=== PATIENT | female | born 1985 | race Caucasian/White ===

== ENCOUNTER 2022-11-05 15:27 | Emergency (ER) | payer SELFPAY ==
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
[2022-11-05 15:58] LABS: Basophils # 0.1 10^3/uL (0.0-0.1); Basophils % 0.5 %; Eosinophils # 0.1 10^3/uL (0.0-0.8); Eosinophils % 1.1 %; Hematocrit 48.6 % (37.0-47.0); Hemoglobin 15.7 g/dL (11.5-15.3); Lymphocytes # 2.1 10^3/uL (0.8-4.8); Lymphocytes % 21.1 %; Mean Corpuscular HGB Conc 32.3 g/dL (30.0-36.0); Mean Corpuscular Hemoglobin 32.6 pg (28.0-34.0); Mean Platelet Volume 10.1 fL (7.4-10.4); Monocytes # 0.6 10^3/uL (0.2-0.9); Monocytes % 6.3 %; Neutrophils # 7.15 10^3/uL (1.8-7.7); Neutrophils % 70.7 %; Nucleated Red Blood Cells % 0 %; Platelet Count 255 10^3/cmm (130-400); Red Blood Count 4.81 10^6/uL (4.1-5.3); Red Cell Distribution Width 13.1 % (12.1-15.1); White Blood Count 10.1 10^3/uL (4.0-10.0)
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
[2022-11-05 16:18] LABS: Alanine Aminotransferase 26 U/L (0-33); Alcohol Level 282 mg/dL (0-10); Alkaline Phosphatase 109 U/L (35-105); Anion Gap 19.3 (5-19); Aspartate Amino Transferase 36 U/L (0-32); Blood Urea Nitrogen 10 mg/dL (6-20); Carbon Dioxide 23 mmol/L (22-29); Chloride 107 mmol/L (98-107); Globulin 3.8 g/dL (1.3-4.6); Glomerular Filtration Rate 139.6 mL/min (90-130); Glucose 92 mg/dL (65-115); Osmolality Calculated 299 mOsm/kg (285-295); Potassium 4.3 mmol/L (3.5-5.1); Sodium 145 mmol/L (136-145); Total Bilirubin 0.3 mg/dL (0.15-1.2); Total Protein 8.8 g/dL (6.6-8.7)
[2022-11-05 16:19] LABS: Acetaminophen < 5.0 ug/mL (10-30); Salicylate < 0.3 mg/dL (3-10)
--- NOTE | 2022-11-05 16:21 | PC.NURSE ---
Dr. Stone to hold off on dressing pt into paper scrubs
--- NOTE | 2022-11-05 16:30 | PC.NURSE ---
Pt refuses to give urine and to answer any questions i ask
[2022-11-05 18:43] VITALS: BP 132/74; PULSE 81; RESP 16; O2SAT 95
[2022-11-05 19:35] VITALS: PULSE 88; RESP 16; O2SAT 96
== END 2022-11-05 19:36 | disposition home or self-care (01) ==
PROVIDERS: Emergency Provider Emergency Medicine; PCP Nurse Practitioner
DX: M54.2 Cervicalgia (principal); F10.129 Alcohol abuse with intoxication, unspecified; Y90.8 Blood alcohol level of 240 mg/100 ml or more
CPT/HCPCS: 72040; 80053; 80307; 85025; 99284

== ENCOUNTER 2022-12-06 12:11 | Emergency (ER) | payer SELFPAY ==
[2022-12-06 12:32] VITALS: BP 119/84; PULSE 95; RESP 16; TEMP 37.1; O2SAT 97; BMI 24.5
--- NOTE | 2022-12-06 12:39 | ED_ITS ---
Documented by User: Helga Ghosh PA-C 12/06/22 13:07 HPI - Dental/Oral General: Chief complaint: Dental/Oral Stated complaint: Mouth is in pain. Time Seen by Provider: 12/06/22 12:21 Source: patient Mode of arrival: ambulatory Limitations: no limitations History of Present Illness: 37-year-old female presents to the ER today for dental pain. Patient reports she has a new abscess that has formed on the front upper tooth. Patient reports she has an appointment with a dentist on Wednesday. She has been on penicillin for about a week now. She reports she is alternating Tylenol and Motrin every 4 hours but it is not touching the pain. Patient reports she is also using topical lidocaine and closed with no improvement. Patient reports that she needs Vicodin or something stronger at this time. She denies any fevers. Denies any swelling of the face. Review of Systems General: Reports: 10 or more systems reviewed and unremarkable except in HPI and below PFSH ED PFSH: Medical History No pertinent past medical history Social History Alcohol intake: current Physical Exam Const: COMMON NORMALS: average body habitus, patient oriented x3, no limitations, healthy appearing, alert and well nourished HENMT: COMMON NORMALS: normocephalic, atraumatic, external ears normal and Normal nasal mucous membranes and turbinates present; dentition not normal HEAD & SCALP: normocephalic and atraumatic NOSE: Normal nasal mucous membranes and turbinates present EXTERNAL EAR: Yes external ears normal TEETH & GINGIVA: Yes caries and Yes poor dentition (Patient has very poor dentition with dental caries and rotting of the upper) OTHER: gingival swelling noted around the front upper teeth Resp: COMMON NORMALS: normal respiratory effort EFFORT & INSPECTION: Yes able to speak in complete sentences Cardio: COMMON NORMALS: regular rate and regular rhythm RATE: regular rate RHYTHM: regular rhythm Extremity: COMMON NORMALS: normal to inspection and full ROM Neuro: COMMON NORMALS: patient oriented x3 SENSORIUM/ORIENTATION: Yes alert Psych: MOOD & AFFECT: Yes irritable and Yes hostile affect Skin: COMMON NORMALS: no rashes or lesions noted GENERAL SKIN EXAM: no rashes or lesions noted Course ED course: Patient presents for dental pain. She is currently on amoxicillin and reports the pain is not controlled with Tylenol, ibuprofen, and the amox icillin. On exam patient is noted to have very poor dentition with multiple caries and fractures along with gingival swelling. Vital Signs: Vital signs: Vital Signs Temperature 98.8 F 12/06/22 12:32 Pulse Rate 95 12/06/22 12:32 Respiratory Rate 16 12/06/22 12:32 Blood Pressure 119/84 12/06/22 12:32 Pulse Oximetry 97 12/06/22 12:32 Oxygen Delivery Me thod 12/06/22 12:32 MDM - Dental/Oral Medical Decision Making I discussed the findings with patient and discussed that we likely need to change from amoxicillin to clindamycin. She is been on the amoxicillin 1 week with no improvement so the clindamycin would have more broad coverage. I also recommended we try a topical viscous lidocaine. Patient says she is already using that and close and doing the Tylenol and Motrin with no improvement. Patient insists on Vicodin. I discussed with patient that we will not be doing anything stronger than the Tylenol and Motrin at this time for pain. I d iscussed with her that we have to take care of the infection in order for the pain to improve. She does have a dentist appointment on Wednesday. Patient became very angry and demanded to see a doctor. I notified Dr. Conley who will see patient when he gets an opportunity. During this time, patient became angry and verbally abusive to the nurse and staff. She was escorted out by security. Patient's discharge paperwork was completed however patient refused to sign. Critical Care Time Critical Care Time: Critical Care Time: No Discharge Plan Discharge Patient Disposition: Home Clinical Impression: Dental caries, Dental abscess Condition: Stable Prescriptions: New clindamycin HCl 300 mg capsule 300 mg PO Q6H 7 Days Qty: 28 0RF No Action Naprosyn 500 mg tablet 500 mg PO BID PRN (Reason: pain) Qty: 20 0RF Discharge Orders: Discharge ED (Routine); Ordered 12/06/22 Ordered By: Helga Ghosh Referrals: Kaz Dahl, HANDBAG STITCHER-C [Primary Care Provider] - Discharge Diet: Advance as tolerated and As Directed Discharge Activity: Resume usual activity Patient Instructions: Opioid Safety, Pain Management Activity Restrictions/Additional Instructions: Amoxicillin and start clindamycin. Continue alternating Tylenol and Motrin for pain. Continue [id number] topical analgesics. Follow-up with dentist Wednesday as scheduled appointment. Coding Level of Care Code ED Clicking Machine Operator for Chg Fwd Exam Detailed Documented by User: Marcin Conley, 12/06/22 14:50 HPI - Dental/Oral General: Chief complaint: Dental/Oral Stated complaint: Mouth is in pain. Time Seen by Provider: 12/06/22 12:21 [facility] ED PFSH: Medical History No pertinent past medical history Social History Alcohol intake: current Course Vital Signs: Vital signs: Vital Signs Temperature 98.8 F 12/06/22 12:32 Pulse Rate 95 12/06/22 12:32 Respiratory Rate 16 12/06/22 12:32 Blood Pressure 119/84 12/06/22 12:32 Pulse Oximetry 97 12/06/22 12:32 Oxygen Delivery Me thod 12/06/22 12:32 MDM - Dental/Oral Medical Decision Making I discussed the findings with patient and discussed that we likely need to change from amoxicillin to clindamycin. She is been on the amoxicillin 1 week with no improvement so the clindamycin would have more broad coverage. I also recommended we try a topical viscous lidocaine. Patient says she is already using that and close and doing the Tylenol and Motrin with no improvement. Patient insists on Vicodin. I discussed with patient that we will not be doing anything stronger than the Tylenol and Motrin at this time for pain. I disc ussed with her that we have to take care of the infection in order for the pain to improve. She does have a dentist appointment on Wednesday. Patient became very angry and demanded to see a doctor. I notified Dr. Conley who will see patient when he gets an opportunity. During this time, patient became angry and verbally abusive to the nurse and staff. She was escorted out by security. Patient's discharge paperwork was completed however patient refused to sign. Chart reviewed and patient discussed with midlevel. Agree with assessment and plan. Discharge Plan Discharge Patient Disposition: Home Clinical Impression: Dental caries, Dental abscess Condition: Stable Prescriptions: New clindamycin HCl 300 mg capsule 300 mg PO Q6H 7 Days Qty: 28 0RF No Action Naprosyn 500 mg tablet 500 mg PO BID PRN (Reason: pain) Qty: 20 0RF Discharge Orders: Discharge ED (Routine); Ordered 12/06/22 Ordered By: Helga Ghosh Referrals: Kaz Dahl, HANDBAG STITCHER-C [Primary Care Provider] - Discharge Diet: Advance as tolerated and As Directed Discharge Activity: Resume usual activity Patient Instructions: Opioid Safety, Pain Management Activity Restrictions/Additional Instructions: Amoxicillin and start clindamycin. Continue alternating Tylenol and Motrin for pain. Continue [id number] topical analgesics. Follow-up with dentist Wednesday as scheduled appointment. Coding Level of Care Code ED Clicking Machine Operator for Chg Fwd Exam Detailed
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
--- NOTE | 2022-12-06 13:09 | PC.NURSE ---
pt appearedi in the hallway yelling at [facility] for talking about her to me (as her nurse). pt states that she is in pain, i offered tylenol/ibuprofen. pt requested vicodan to WELFARE CENTRE MANAGER, WELFARE CENTRE MANAGER denied causing pt to be angry. pt wants to leave, she is discharged with antibiotic for mouth infection. pt denies script.
== END 2022-12-06 13:00 | disposition home or self-care (01) ==
PROVIDERS: Emergency Provider Physician Assistant; PCP Nurse Practitioner
DX: K02.9 Dental caries, unspecified (principal); K04.7 Periapical abscess without sinus
CPT/HCPCS: 99283